=== PATIENT | male | born 1970 | race Caucasian/White ===

== ENCOUNTER 2020-10-04 12:02 | Emergency (ER) | payer BC ==
[~2020-10-04] VITALS: Ht 170.2 cm; Wt 84.0 kg
[2020-10-04 13:13] VITALS: BP 123/71
== END 2020-10-04 14:38 | disposition home or self-care (01) ==
LOC: ER 12:02
DX: T88.7XXA Unspecified adverse effect of drug or medicament, initial encounter (principal)
CPT/HCPCS: 99283